=== PATIENT | female | born 1970 | race Caucasian/White ===

== ENCOUNTER → 2017-05-16 12:27 | Outpatient (CLI) | payer BC, SELFPAY ==
[2017-05-16 13:32] LABS: Albumin Level 3.9 gm/dL (3.4-5.0); Anion Gap 11.7 mEq/L (5-15); Blood Urea Nitrogen 11 mg/dL (7-18); Calcium 8.6 mg/dL (8.5-10.1); Carbon Dioxide 25 mmol/L (21.0-32.0); Chloride 106 mmol/L (98-107); Creatinine,Serum 2.11 mg/dL (0.55-1.02); Estimated Glomerular Filt Rate 25 ml/min (>60); GFR (African American) 30 ML/MIN (>60); Glucose 91 mg/dL (74-106); Phosphorous 2.8 mg/dL (2.4-4.9); Potassium 3.7 mmoL/L (3.5-5.1); Sodium 139 mmol/L (136-145)
[2017-05-17 09:13] LABS: Vitamin D 25 Hydroxy 28.3 ng/mL (30.0-100.0)
[2017-05-17 19:55] LABS: Parathyroid Hormone Intact 49 pg/mL (15-65)
== END ==
PROVIDERS: PCP Family Medicine; Visit Provider Internal Medicine Nephrology
DX: N25.81 Secondary hyperparathyroidism of renal origin (principal); N18.3 Chronic kidney disease, stage 3 (moderate); E55.9 Vitamin D deficiency, unspecified
CPT/HCPCS: 36415; 80069; 82652; 83970